=== PATIENT | male | born 1945 | race Caucasian/White ===

== ENCOUNTER → 2016-11-03 | Outpatient (CLI) | payer BC ==
[~2016-11-03] MED LIST: ANTIVERT 25MG25 MG PO; COZAAR100 MG PO; GLUCOPHAGE500 MG/TAB PO; MAGNESIUM OXID500 MG PO; PAMELOR 25MG25 MG PO; SINGULAIR 110 MG/TAB PO; ZEBETA10 MG PO; ZOFRAN ODT4 MG PO; [UNRECOGNIZED DRUG - OTHER] PO
== END ==
LOC: COL.RAD 07:55
DX: K57.30 Diverticulosis of large intestine without perforation or abscess without bleeding (principal); Z86.010 Personal history of colon polyps

== ENCOUNTER 2016-12-18 09:03 | Emergency (ER) | payer BC ==
[~2016-12-18] VITALS: Ht 182.9 cm; Wt 95.5 kg
[2016-12-18 09:05] VITALS: TEMP 97.9
[2016-12-18] MEDS ORDERED: ZEBETA10 MG PO (09:38)
[2016-12-18] MEDS ORDERED: COZAAR100 MG PO (09:39)
[2016-12-18] MEDS ORDERED: [UNRECOGNIZED DRUG - OTHER] PO (09:40)
[2016-12-18] MEDS ORDERED: GLUCOPHAGE500 MG/TAB PO (09:40)
[2016-12-18] MEDS ORDERED: SINGULAIR 110 MG/TAB PO (09:40)
[2016-12-18] MEDS ORDERED: PAMELOR 25MG25 MG PO (09:41)
[2016-12-18] MEDS ORDERED: MAGNESIUM OXID500 MG PO (09:42)
[2016-12-18 10:08] LABS: BASO % 0.6 % (0.0-2.0); EOS # 0.1 (0.0-0.7); EOS % 2.3 % (0-4.0); GRAN # 2.3 (1.4-6.5); GRAN % 48.5 % (42.2-75.2); HEMATOCRIT 49.3 % (42.0-52.0); HEMOGLOBIN 16.3 g/dl (13.5-18.0); LYMPH # 1.8 (1.2-3.4); LYMPH % 37.5 % (20.0-51.0); MEAN CELL VOLUME 97 fl (80.0-100.0); MEAN CORPUSCULAR HEMOGLOBIN 32 pg (27.0-31.0); MEAN CORPUSCULAR HGB CONC 33 g/dl (33.0-37.0); MEAN PLATELET VOLUME 10.2 fl (7.4-10.4); MONO # 0.5 (0.1-0.6); MONO % 10.7 % (1.7-9.3); PLATELET COUNT 225 K/mm3 (130-400); RED BLOOD COUNT 5.09 M/mm3 (4.20-5.60); REDCELL DISTRIBUTION WIDTH-CV 13.3 % (11.5-14.5); WHITE BLOOD COUNT 4.7 K/mm3 (4.8-10.8)
[2016-12-18 10:13] LABS: ADJUSTED CALCIUM 8.8 mg/dL (8.4-10.2); ALBUMIN 4.2 gm/dL (3.5-5.0); BILIRUBIN,TOTAL 0.7 mg/dL (0.0-1.0); CREATININE, serum 1.14 mg/dL (0.66-1.25); POTASSIUM 3.9 mmol/L (3.4-5.0); TOTAL PROTEIN 6.7 gm/dL (6.4-8.2)
[2016-12-18] MEDS ORDERED: ZOFRAN ODT4 MG PO (10:39)
[2016-12-18] MEDS ORDERED: ANTIVERT 25MG25 MG PO (10:39)
[2016-12-18 12:06] VITALS: BP 143/96; PULSE 75
== END 2016-12-18 12:10 | disposition home or self-care (01) ==
LOC: COL.ER 09:03
PROVIDERS: Emergency Medicine
DX: R42 Dizziness and giddiness (principal); I10 Essential (primary) hypertension; J45.909 Unspecified asthma, uncomplicated; G43.909 Migraine, unspecified, not intractable, without status migrainosus; R11.2 Nausea with vomiting, unspecified
CPT/HCPCS: J2405; J2550; J3360; J7040

== ENCOUNTER → 2018-10-30 | Outpatient (CLI) | payer BC | LOC: COL.RAD 13:00 | DX: M25.551 Pain in right hip (principal) | CPT/HCPCS: J3301; Q9967 ==

== ENCOUNTER 2022-03-03 22:43 | Inpatient (IN) | payer MEDICARE, BC ==
[~2022-03-03] VITALS: Ht 180.3 cm; Wt 103.0 kg
[2022-03-03 23:12] LABS: BASO % 0.8 % (0.0-2.0); EOS # 0.1 K/mm3 (0.0-0.7); EOS % 2.1 % (0.0-4.0); GRAN # 2.9 K/mm3 (1.4-6.5); GRAN % 56.6 % (42.2-75.2); HEMATOCRIT 45.4 % (42.0-52.0); HEMOGLOBIN 15.5 g/dl (13.5-18.0); LYMPH # 1.5 K/mm3 (1.2-3.4); LYMPH % 29.8 % (20.0-51.0); MEAN CELL VOLUME 96 fl (80.0-100.0); MEAN CORPUSCULAR HEMOGLOBIN 33 pg (27-31); MEAN CORPUSCULAR HGB CONC 34 g/dl (33.0-37.0); MEAN PLATELET VOLUME 10.6 fl (7.4-10.4); MONO # 0.5 K/mm3 (0.1-0.6); MONO % 10.1 % (1.7-9.3); PLATELET COUNT 205 K/mm3 (130-400); RED BLOOD COUNT 4.74 M/mm3 (4.20-5.60); REDCELL DISTRIBUTION WIDTH-CV 13.1 % (11.5-14.5)
[2022-03-03 23:16] LABS: INR 1.1 (0.8-3.0); PROTHROMBIN TIME 12.5 SECONDS (9.7-12.8)
[2022-03-03 23:18] LABS: PARTIAL THROMBOPLASTIN TIME 36.4 SECONDS (26.0-37.0)
[2022-03-03 23:26] LABS: ALANINE AMINOTRANSFERASE 28 U/L (0-55); ALBUMIN 3.8 gm/dL (3.4-4.8); ALKALINE PHOSPHATASE 92 U/L (40-150); ANION GAP 14 mmol/L (7-16); AST,SGOT 26 U/L (5-34); BILIRUBIN,TOTAL 0.5 mg/dL (0.2-1.2); BLOOD UREA NITROGEN 21 mg/dL (8-26); CALCIUM 9.2 mg/dL (8.4-10.2); CARBON DIOXIDE 20 mmol/L (23-31); CHLORIDE 108 mmol/L (98-107); CREATININE, serum 1.09 mg/dL (0.72-1.25); GLUCOSE 152 mg/dL (70-99); POTASSIUM 3.5 mmol/L (3.5-4.5); SODIUM 142 mmol/L (136-145); TOTAL PROTEIN 7.5 gm/dL (6.2-8.1)
[2022-03-03 23:29] LABS: COLLECTION METHOD CLEAN CATCH
[2022-03-03 23:32] LABS: TROPONIN-I < 0.010 ng/mL (0.00-0.033)
[2022-03-03 23:35] LABS: PH 5 (5-8); SQUAMOUS EPITHELIAL None Seen /hpf (0-10); URINE APPEARANCE Clear (CLEAR/HAZY); URINE BACTERIA None Seen /hpf (NONE SEEN); URINE BILIRUBIN Negative (NEGATIVE); URINE BLOOD Negative (NEGATIVE); URINE COLOR Straw (YELLOW); URINE GLUCOSE Negative (NEGATIVE); URINE KETONE Negative (NEGATIVE); URINE LEUKOCYTE ESTERASE Negative (NEGATIVE); URINE NITRATE Negative (NEGATIVE); URINE PROTEIN(semi-quant) Negative (NEGATIVE); URINE RBC 0-2 /hpf (0-2); URINE UROBILINOGEN Negative (NEGATIVE)
[2022-03-04] VITALS (698 sets, daily range): BP systolic 126–150; BP diastolic 80–89; PULSE 60–72; TEMP 98–98.4; O2SAT 91–100
[2022-03-04] MEDS ORDERED: MULTI VITAMINS1 TAB PO (00:38)
[2022-03-04] MEDS ORDERED: VITAMIND3 5000 PO (00:38)
[2022-03-04] MEDS ORDERED: ICAPS AREDS FO1 EACH PO (00:39)
[2022-03-04] MEDS ORDERED: OMEGA-3 1000 MG1 CAP PO (00:39)
[2022-03-04] MEDS ORDERED: ZYRTEC 10MG10 MG PO (00:40)
[2022-03-04] MEDS ORDERED: NORVASC2.5 MG PO (00:40)
[2022-03-04] MEDS ORDERED: SINGULAIR 110 MG/TAB PO (00:40)
[2022-03-04] MEDS ORDERED: SYNTHROID0.125 MG/T PO (00:41)
[2022-03-04] MEDS ORDERED: COZAAR100 MG PO (00:41)
[2022-03-04 06:37] LABS: BASO % 0.8 % (0.0-2.0); EOS # 0.1 K/mm3 (0.0-0.7); EOS % 2.9 % (0.0-4.0); GRAN # 2.4 K/mm3 (1.4-6.5); GRAN % 48.6 % (42.2-75.2); HEMATOCRIT 42.3 % (42.0-52.0); HEMOGLOBIN 14.1 g/dl (13.5-18.0); LYMPH # 1.7 K/mm3 (1.2-3.4); LYMPH % 34.1 % (20.0-51.0); MEAN CELL VOLUME 98 fl (80.0-100.0); MEAN CORPUSCULAR HEMOGLOBIN 33 pg (27-31); MEAN CORPUSCULAR HGB CONC 33 g/dl (33.0-37.0); MEAN PLATELET VOLUME 10.6 fl (7.4-10.4); MONO # 0.6 K/mm3 (0.1-0.6); MONO % 12.8 % (1.7-9.3); PLATELET COUNT 164 K/mm3 (130-400); RED BLOOD COUNT 4.31 M/mm3 (4.20-5.60); REDCELL DISTRIBUTION WIDTH-CV 13.1 % (11.5-14.5)
[2022-03-04 06:54] LABS: CALCIUM 8.5 mg/dL (8.4-10.2); CREATININE, serum 0.95 mg/dL (0.72-1.25); POTASSIUM 4.3 mmol/L (3.5-4.5)
--- NOTE | 2022-03-04 07:00 | NUR ---
BEDSIDE REPORT RECEIVED FROM GWEN LIRA. PT ALERT AND ORIENTED THIS AM. HEPARIN GTT CURRENTLY ON HOLD. CARDIZEM GTT INFUSING AT 5MG/HR. PT HAS BEEN IN SR SINCE BEING ADMITTED TO ICU OVERNIGHT. PT OFFERS NO COMPLAINTS. NO S/S DISCOMFORT.
[2022-03-04 07:03] LABS: TROPONIN-I 6 HR POST INITIAL 0.012 ng/mL (0.00-0.033)
--- NOTE | 2022-03-04 07:05 | NUR ---
PER PROTOCOL GTT. STOPPED AT THIS TIME. WILL BE RESUMED IN 1 HR AT LOWER RATE
[2022-03-04 08:28] LABS: CREATININE, serum 0.99 mg/dL (0.72-1.25); POTASSIUM 4.8 mmol/L (3.5-4.5)
--- NOTE | 2022-03-04 12:32 | NUR ---
[employer] Teacher visited briefly with patient. Nothing else needed at this time.
[2022-03-04] MEDS ORDERED: TOPROL XL 25MG25 MG PO (15:38)
[2022-03-04] MEDS ORDERED: TAMBOCOR 1100 MG/TAB PO (15:38)
[2022-03-04] MEDS ORDERED: ELIQUIS 5MG PO (15:38)
--- NOTE | 2022-03-04 17:10 | NUR ---
PT D/C'D HOME. PT GIVEN ALL DISCHARGE INSTRUCTIONS AND INSTRUCTED TO CALL AND GET GET FOLLOW UP APPOINTMENTS WITH CARDIOLOGY AND PCP ON WEDNESDAY 03/07. PT ALSO INSTRUCTED TO STOP AT PHARMACY ON THE WAY HOME AND CLINICAL PRODUCT SPECIALIST NEW MEDICATIONS. PT AND VERBALIZE UNDERSTANDING OF DISCHARGE INSTRUCTIONS. PT ABLE TO AMBULATE TO ER ENTRANCE WHERE PICKED HIM UP. NO S/S DISCOMFORT. PT INSTRUCTED TO RETURN TO ER IF S/S AFIB RETURN.
== END 2022-03-04 17:10 | disposition home or self-care (01) | DRG 309 ==
LOC: COL.ER 22:43 → ICU 03-04 00:27
PROVIDERS: Emergency Medicine; Internal Medicine Critical Care Medicine; Nurse Practitioner Family; ADMIT Internal Medicine
DX: I48.0 Paroxysmal atrial fibrillation (principal); E87.2 Acidosis; Z20.822 Contact with and (suspected) exposure to COVID-19; G47.30 Sleep apnea, unspecified; E03.9 Hypothyroidism, unspecified; J45.909 Unspecified asthma, uncomplicated; R73.03 Prediabetes; G43.909 Migraine, unspecified, not intractable, without status migrainosus; R59.9 Enlarged lymph nodes, unspecified; I12.9 Hypertensive chronic kidney disease with stage 1 through stage 4 chronic kidney disease, or unspecified chronic kidney disease; R73.9 Hyperglycemia, unspecified; N18.9 Chronic kidney disease, unspecified; Z99.81 Dependence on supplemental oxygen; Z87.891 Personal history of nicotine dependence; Z90.49 Acquired absence of other specified parts of digestive tract; Z90.89 Acquired absence of other organs; Z88.1 Allergy status to other antibiotic agents; Z88.8 Allergy status to other drugs, medicaments and biological substances; Z86.16 Personal history of COVID-19; Z23 Encounter for immunization
CPT/HCPCS: C9113; G0378; J1644; J7030